=== PATIENT | male | born 1980 | race Caucasian/White ===

== ENCOUNTER 2021-10-23 15:00 | Outpatient (RCR) | payer OTHER ==
[2021-10-19 15:21] VITALS: BP 121/73; PULSE 93; TEMP 97.7
[~2021-10-23] VITALS: Ht 195.6 cm; Wt 115.0 kg
[2021-10-23 10:56] VITALS: BP 114/69; PULSE 53; TEMP 97.5
[2021-10-30 09:35] VITALS: BP 144/76; PULSE 56; TEMP 97.6
== END 2021-10-30 | disposition home or self-care (01) ==
LOC: EUO
DX: Z29.14 Encounter for prophylactic rabies immune globulin (principal)

== ENCOUNTER → 2022-06-01 | Outpatient (CLI) | payer OTHER | LOC: COL.RAD 05-24 09:45 | DX: R74.8 Abnormal levels of other serum enzymes (principal) ==